=== PATIENT | female | born 1970 | race Caucasian/White ===

== ENCOUNTER 2020-10-20 17:06 | Emergency (ER) | payer OTHER, SELFPAY ==
[2020-10-20 17:23] VITALS: BP 165/92; PULSE 106; RESP 16; TEMP 36.6; O2SAT 97
--- NOTE | 2020-10-20 17:39 | PC.NURSE ---
Patient walked up to triage desk and informed this nurse that her rectum went up back in patient states that she would still like to be seen by a physician.
--- NOTE | 2020-10-20 18:17 | ED.GENADULT ---
HPI - General Adult General Chief complaint: Unspecified Stated complaint: something going on with my butt Time Seen by Provider: 10/20/20 17:54 Source: patient Mode of arrival: ambulatory Limitations: no limitations History of Present Illness HPI narrative: This is a 50-year-old female that presents to the emergency department for rectal pain today. Reports that a couple of days ago she was having trouble with constipation and had to strain. Reports today she noted some abnormal swelling around her rectum that is painful. Does also report some bloody discharge. Denies fever abdominal pain, or vomiting. Related Data Allergies Allergy/AdvReac Type Severity Reaction Status Date / Time naproxen Allergy Mild ITCHING Verified 10/20/20 18:09 Review of Systems Review of Systems: Narrative: CONSTITUTIONAL: Denies fever GASTROINTESTINAL: Denies abdominal pain, nausea, vomiting All systems reviewed & are unremarkable except as noted in HPI and below PMFSH Past Medical History Medical History (Updated 10/20/20 @ 18:20 by Billie Camara PA-C) No active medical problems Social History Social History Alcohol intake: never Exam Narrative: Exam Narrative: GENERAL: Well-appearing, well-nourished, and in no acute distress. HEAD: Normocephalic, atraumatic. EYES: EOMI. CHEST: Clear to auscultation. No respiratory distress. No wheezes rales or rhonchi HEART: Regular rate and rhythm. No murmur heard. Normal peripheral pulses. ABDOMEN: Soft, nontender, nondistended, normal active bowel sounds. EXTREMITIES: Normal range of motion. No edema. SKIN: Warm, dry, no rash. NEURO: No focal deficits. Alert and oriented x3. PSYCH: Normal mood and affect RECTAL: Hemoccult positive. External hemorrhoid is present that is nonthrombosed, no active bleeding Course Vital Signs Vital signs: Vital Signs Temperature 97.9 F 10/20/20 17:23 Pulse Rate 106 H 10/20/20 17:23 Respiratory Rate 16 10/20/20 17:23 Blood Pressure 165/92 H 10/20/20 17:23 Pulse Oximetry 97 10/20/20 17:23 Temperature 97.9 F 10/20/20 17:23 Pulse Rate 106 H 10/20/20 17:23 Respiratory Rate 16 10/20/20 17:23 Blood Pressure 165/92 H 10/20/20 17:23 Pulse Oximetry 97 10/20/20 17:23 Medical Decision Making MDM Narrative Medical decision making narrative: Patient presents the emergency department for rectal pain. A hemorrhoid is noted on exam that is nonthrombosed. No active bleeding, she was Hemoccult positive. Denies any fever, abdominal pain or vomiting. Patient will be started on cream for hemorrhoid and instructed on care of constipation. She is to follow-up with primary care doctor. She was given warnings to return to the ER Vital Signs Vital Signs: Vital Signs Temperature 97.9 F 10/20/20 17:23 Pulse Rate 106 H 10/20/20 17:23 Respiratory Rate 16 10/20/20 17:23 Blood Pressure 165/92 H 10/20/20 17:23 Pulse Oximetry 97 10/20/20 17:23 Temperature 97.9 F 10/20/20 17:23 Pulse Rate 106 H 10/20/20 17:23 Respiratory Rate 16 10/20/20 17:23 Blood Pressure 165/92 H 10/20/20 17:23 Pulse Oximetry 97 10/20/20 17:23 Critical Care Time Critical Care Time Critical Care Time: No Discharge Plan Discharge Clinical Impression: Hemorrhoid Qualifiers: Hemorrhoid type: unspecified Qualified Code(s): K64.9 - Unspecified hemorrhoids Patient Disposition: Home, Self-Care Condition: Stable Instructions: Hemorrhoids (ED) Additional Instructions: Return to the emergency department if you experience fever, abdominal pain with nausea and vomiting, redness and swelling of your rectum, or any other symptoms that are concerning to you Remain well-hydrated. MiraLAX and Colace as needed for constipation. Apply hydrocortisone cream as prescribed Follow-up with your primary care doctor Prescriptions: New hydrocortisone 1 % cream with perineal applicator 1 applic RECTAL BID 7 Days Qty: 28.4 RF: 0 F
[2020-10-20 18:35] VITALS: BP 157/91; PULSE 95; RESP 16; TEMP 37; O2SAT 100
== END 2020-10-20 18:35 | disposition home or self-care (01) ==
PROVIDERS: Emergency Provider Emergency Medicine; PCP Nurse Practitioner Family
DX: K64.9 Unspecified hemorrhoids (principal)
CPT/HCPCS: 99283